=== PATIENT | male | born 1990 | race Caucasian/White ===

== ENCOUNTER 2016-09-24 09:56 | Emergency (ER) | payer OTHER ==
[~2016-09-24] VITALS: Ht 185.4 cm; Wt 117.9 kg
[2016-09-24 10:01] VITALS: BP 162/78
--- NOTE | 2016-09-24 10:35 | RADIOLOGY REPORT ---
EXAMINATION: XR SHOULDER, LEFT CLINICAL INFORMATION: Left shoulder pain. Unable to lift arm. COMPARISON: None TECHNIQUE: AP external rotation, Grashey, scapular Y, and axillary views of the left shoulder. FINDINGS: No fracture or dislocation. The humeral head articulates appropriately with the glenoid. The joint space is maintained. The acromioclavicular joint is intact. The soft tissues are unremarkable. IMPRESSION: Unremarkable left shoulder radiographs.
--- NOTE | 2016-09-24 10:47 | ED UPPER/LOWER EXTREMITY COMPL ---
History of Present Illness General Chief Complaint: Shoulder Injury Stated Complaint: L SHOULDER INJURY Source: patient Exam Limitations: no limitations Vital Signs & Intake/Output Vital Signs & Intake/Output Vital Signs Date Time Temp Pulse Resp B/P B/P Pulse O2 O2 Flow FiO2 Mean Ox Delivery Rate 09/24 1001 97.8 99 18 162/78 98 Room Air Allergies Coded Allergies: NO KNOWN ALLERGIES (10/06/11) Reconcile Medications Meloxicam (Mobic) 15 MG TABLET 1 TAB PO DAILY pain Triage Note: PT DENIES INJURY BUT STATES THAT FOR THE PAST 4 DAYS HE HAS BEEN HAVING L SHOULDER PAIN, HAS HISTORY OF FX CLAVICLE ON THE SAME SIDE. TOOK MOTRIN THIS AM WITH LITTLE RELIEF, STATES THAT PAIN INCREASES WHEN HE TRIES TO LIFT HIS ARM. REFUSES MEDS AT TRIAGE DUE TO HE TOOK MOTRIN. Triage Nurses Notes Reviewed? yes Onset: Abrupt Duration: day(s): (few), constant, continues in ED Timing: recent history Severity: moderate, severe No Modifying Factors: none HPI: 26-year-old male comes into emergency room with complaints of left shoulder pain. Patient reports it has been going on since this past Friday which is about 5 days. Sharp pain. Limited range of motion. Denies any fever. Denies any chills. Denies any vomiting. Denies any other associated symptoms. Nothing seems to make the symptoms better. Patient reports he can barely lift his arm at this point. Denies any falls or trauma that he is aware of. (ALMA DELIA SAM) Past History Travel History Traveled to [place] past 21 day No Medical History Any Pertinent Medical History? 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 No (ALMA DELIA SAM) Review of Systems Review of Systems Constitutional: Reports: no symptoms. EENTM: Reports: no symptoms. Respiratory: Reports: no symptoms. Cardiovascular: Reports: no symptoms. Gastrointestinal/Abdominal: Reports: no symptoms. Genitourinary: Reports: no symptoms. Musculoskeletal: Reports: see HPI. Skin: Reports: no symptoms. Neurological/Psychological: Reports: no symptoms. Hematologic/Endocrine: Reports: no symptoms. Immunological: Reports: no symptoms. All Other Systems: Reviewed and Negative (ALMA DELIA SAM) Physical Exam Physical Exam General Appearance: well developed/nourished, mild distress Head: atraumatic Eyes: Bilateral: normal appearance. Ears, Nose, Throat: normal ENT inspection, hearing grossly normal Neck: normal inspection Cardiovascular/Respiratory: no respiratory distress Back: normal inspection Shoulder Left: soft tissue tenderness, limited range of motion, pain with abduction, pain over the before meals joint, Hand Left: normal inspection, normal range of motion Neurologic/Tendon: normal sensation, normal motor functions, normal tendon functions, responds to pain, no evidence tendon injury, no pulse deficit Skin: intact, normal color, warm/dry Lymphatic: no anterior cervical melissa (ALMA DELIA SAM) Progress Differential Diagnosis: arterial insufficiency, contusion, dislocation, DVT, fracture, gout, septic arthritis, sprain, tendon injury, rotator cuff injury, impingement syndrome, Plan of Care: Orders Procedure Date/time Status Durable Medical Equipment 09/24 1045 Active Diagnostic Imaging: Viewed by Me: Radiology Read. Discussed w/RAD: Radiology Read. Comments: EXAM TYPE: RAD - XRY-SHOULDER COMPLETE-LEFT EXAMINATION: XR SHOULDER, LEFT CLINICAL INFORMATION: Left shoulder pain. Unable to lift arm. COMPARISON: None TECHNIQUE: AP external rotation, Grashey, scapular Y, and axillary views of the left shoulder. FINDINGS: No fracture or dislocation. The humeral head articulates appropriately with the glenoid. The joint space is maintained. The acromioclavicular joint is intact. The soft tissues are unremarkable. IMPRESSION: Unremarkable left shoulder radiographs. DICTATED BY: PIERRE BENITEZ,LEONIDES DATE/TIME DICTATED:09/24/161030 PLANT MAINTENANCE SUPERVISOR:KAYLENE DATE/TIME TRANSCRIBED:09/24/161030 CONFIDENTIAL, DO NOT COPY WITHOUT APPROPRIATE AUTHORIZATION. (ALMA DELIA SAM) Departure Departure Disposition: HOME OR SELF CARE Condition: Stable Clinical Impression Primary Impression: Left shoulder strain Referrals: MICHEAL HUFFMAN MD PATIENT HAS NO PRIMARY CARE DR (PCP/Family) Physical Therapy Additional Instructions: Take Mobic as prescribed. Ice. Rest. Follow-up for physical therapy. Return if any concerns worsening symptoms. Please go over all results of today's visit with your primary care doctor. Contact your primary care doctor to let them know you were here in the emergency room. There may be nonspecific findings which may not be related to your visit today here in the emergency room but may require further evaluation and chronic monitoring by your primary care doctor. If you had a laceration today the chance of foreign body always remains. You should follow-up with your primary care doctor for recheck in 3-5 days for a wound check. If you had an x-ray done there is a chance that a fracture could have been missed on initial read and you should follow-up with your primary care doctor for repeat x-rays if symptoms persist. If your blood pressure was elevated here in the emergency room please have rechecked by her primary care doctor within the next 48 hours by your primary care doctor. If you were prescribed a narcotic here in the emergency room or any type of controlled substances you're not allowed to drive while taking this medication or operate any type of heavy machinery. Narcotics can make you feel lightheaded dizziness nausea and can cause constipation. You may need to bulk picker a stool softener. Thank you for choosing [facility] emergency room. Please return to the emergency room immediately if you have any other concerns worsening of symptoms. Departure Forms: Customer Survey General Discharge Information Prescriptions: Current Visit Scripts Meloxicam (Mobic) 1 TAB PO DAILY #20 TAB (ALMA DELIA SAM) PA/SAILING INSTRUCTOR Co-Sign Statement Statement: ED Attending supervision documentation- [] I saw and evaluated the patient. I have also reviewed all the pertinent lab results and diagnostic results. I agree with the findings and the plan of care as documented in the PA's/SAILING INSTRUCTOR's documentation. [X] I have reviewed the ED Record and agree with the PA's/SAILING INSTRUCTOR's documentation. [] Additions or exceptions (if any) to the PAs/SAILING INSTRUCTOR's note and plan are summarized below: [] (CANDIDO BENITEZ,MARY) Procedures Splinting Location: left shoulder Manual Alignment Performed: No Pre-Made Type: shoulder immobilizer Splint Applied By: splint applied by me Pre-Proc Neuro Vasc Exam: normal Post-Proc Neuro Vasc Exam: normal (ALMA DELIA SAM)
[2016-09-24] MEDS ORDERED: MOBIC15 M1 PO (10:51)
== END 2016-09-24 10:52 ==
LOC: ERH 09:56
DX: S46.912A Strain of unspecified muscle, fascia and tendon at shoulder and upper arm level, left arm, initial encounter (principal); X58.XXXA Exposure to other specified factors, initial encounter; Y92.9 Unspecified place or not applicable; Y93.9 Activity, unspecified
CPT/HCPCS: 73030-LT